=== PATIENT | male | born 1960 | race Two or more races ===

== ENCOUNTER 2016-08-03 18:46 | Emergency (ER) | payer SELFPAY ==
[~2016-08-03] VITALS: Ht 182.9 cm; Wt 97.5 kg
[2016-08-03 19:50] VITALS: BP 171/97
[2016-08-03] MEDS ORDERED: DOCUSATE 100 MG/10 ML SOLUTION. PO STA (20:03)
[2016-08-03] MEDS ORDERED: ACET-704 PO (21:49)
[2016-08-03] MEDS ORDERED: AMOX875T PO (21:49)
--- NOTE | 2016-08-03 21:49 | PHYS DOC ---
Past Medical History Past Medical History: Diabetes-Type II Past Surgical History: No Surgical History Alcohol Use: None Drug Use: None Adult General Chief Complaint Chief Complaint: MULTIPLE COMPLAINTS [facility] HPI Patient is a 55 year old male with history of diabetes type 2 who presents today with left ear pain for one week. Patient's also complaining of subjective fevers. Denies any cough or congestion. Review of Systems Review of Systems Constitutional: Subjective fevers Eyes: Denies change in visual acuity, redness, or eye pain [] HENT: Left ear pain Respiratory: Denies cough or shortness of breath [] Cardiovascular: No additional information not addressed in HPI [] GI: Denies abdominal pain, nausea, vomiting, bloody stools or diarrhea [] : Denies dysuria or hematuria [] Musculoskeletal: Denies back pain or joint pain [] Integument: Denies rash or skin lesions [] Neurologic: Denies headache, focal weakness or sensory changes [] Endocrine: Denies polyuria or polydipsia [] Current Medications Current Medications Current Medications Medications (Trade) Dose Ordered Sig/Matt Start Time Stop Time Status Last Admin Dose Admin Acetaminophen/ Hydrocodone Bitart (Lortab 5/325) 1 tab 1X ONCE 08/03/16 22:00 08/03/16 22:01 08/03/16 21:40 1 TAB Docusate Sodium (Colace Solution) 100 mg 1X STAT 08/03/16 20:03 08/03/16 20:05 DC 08/03/16 20:00 100 MG Allergies Allergies Allergies Coded Allergies Type Severity Reaction Last Updated Verified No Known Drug Allergies 08/03/16 No Physical Exam Physical Exam Constitutional: Well developed, well nourished, no acute distress, non-toxic appearance. [] HENT: Normocephalic, atraumatic, bilateral external ears normal, oropharynx moist, no oral exudates, nose normal. [] Left TM with complete in visibility due to impacted ear canal with cerumen. Eyes: PERRLA, EOMI, conjunctiva normal, no discharge. [] Neck: Normal range of motion, no tenderness, supple, no stridor. [] Cardiovascular:Heart rate regular rhythm, no murmur [] Lungs & Thorax: Bilateral breath sounds clear to auscultation [] Abdomen: Bowel sounds normal, soft, no tenderness, no masses, no pulsatile masses. [] Skin: Warm, dry, no erythema, no rash. [] Back: No tenderness, no CVA tenderness. [] Extremities: No tenderness, no cyanosis, no clubbing, ROM intact, no edema. [] Neurologic: Alert and oriented X 3, normal motor function, normal sensory function, no focal deficits noted. [] Psychologic: Affect normal, judgement normal, mood normal. [] Current Patient Data Vital Signs Vital Signs Date Time Temp Pulse Resp B/P (MAP) Pulse Ox O2 Delivery O2 Flow Rate FiO2 08/03/16 19:50 98.9 91 18 98 Room Air 98.9 EKG EKG [] Radiology/Procedures Radiology/Procedures [] Course & Med Decision Making Course & Med Decision Making Pertinent Labs and Imaging studies reviewed. (See chart for details) Patient is in the ED with left ear pain. Left ear exam shows patient has cerumen impaction. We did put a call us in the ear. Some of the wax was removed. The TM appears red but ear canal has cerumen. Discharged with education on cerumen removal. Discharged with amoxicillin for 10 days. Dragon Disclaimer Dragon Disclaimer This electronic medical record was generated, in whole or in part, using a voice recognition dictation system. Departure Departure Impression: Primary Impression: Otitis media Additional Impression: Impacted cerumen of left ear Disposition: 01 HOME, SELF-CARE Condition: STABLE Referrals: NO PCP (PCP) follow up with your doctor in one week Patient Instructions: Cerumen Impaction, Otitis Media, Adult Additional Instructions: You have ear pain and cerumen impaction. Use over the counter Debrox for ear wax removal. Complete your antibiotics. Follow up with you doctor next week. Scripts Acetaminophen With Codeine (TYLENOL WITH CODEINE #3 TABLET) 1 Each Tablet 1 TAB PO PRN Q6HRS Y for PAIN, #30 TAB Prov: MUTUNGA,AMANDA FLEET SERVICE CLERK 08/03/16 Amoxicillin (AMOXICILLIN) 875 Mg Tablet 1 TAB PO BID, #20 TAB Prov: MUTUNGAAMANDA FLEET SERVICE CLERK 08/03/16 Problem Qualifiers Primary Impression: Otitis media Otitis media type: other nonsuppurative Laterality: left Chronicity: acute Recurrence: not specified as recurrent Qualified Codes: H65.192 - Other acute nonsuppurative otitis media, left ear AMANDA PIMENTEL FLEET SERVICE CLERK August 03, 2016 21:49
[2016-08-03] MEDS ORDERED: HYDROcodone/APAP 5/325MG 1 TAB TABLET PO ONE (22:00)
== END 2016-08-03 21:54 | disposition home or self-care (01) ==
LOC: ER 19:54
DX: H61.22 Impacted cerumen, left ear (principal); H66.92 Otitis media, unspecified, left ear; E11.9 Type 2 diabetes mellitus without complications
CPT/HCPCS: 99283